=== PATIENT | female | born 1975 | race Caucasian/White ===

== ENCOUNTER 2019-05-07 13:46 | Emergency (ER) | payer OTHER ==
[~2019-05-07] VITALS: Ht 172.7 cm; Wt 106.6 kg
[~2019-05-07 13:46] MED LIST: ALEVE220 MG PO; ATIVAN1 MG PO; BACTRIM DS TAB1 EACH PO; BUSPIRONE HCL7.5 MG PO; CELEXA20 MG PO; DOXYCYCLINE HY100 MG PO; GUAIFENESIN-CO118 ML PO; NAPROXEN500 MG PO; PREDNISONE20 MG PO; PRENATAL-FOLIC1 EACH PO; PROVENTIL HFA6.7 GM INH; ROBAXIN500 MG PO; UNITHROID25 MCG PO; ZESTRIL20 MG PO
[2019-05-07] MEDS ORDERED: ROBITUSSIN COU237 M3 PO (15:45)
[2019-05-07] MEDS ORDERED: VENTOLIN HFA18 GM INH (15:45)
== END 2019-05-07 16:05 | disposition home or self-care (01) ==
LOC: ED 13:46
DX: J06.9 Acute upper respiratory infection, unspecified (principal); R06.2 Wheezing; I10 Essential (primary) hypertension; Z90.49 Acquired absence of other specified parts of digestive tract; Z90.89 Acquired absence of other organs; Z88.0 Allergy status to penicillin
CPT/HCPCS: 94640; 99283

== ENCOUNTER 2022-05-20 22:44 | Observation (INO) | payer BC, OTHER ==
[~2022-05-20] VITALS: Ht 172.7 cm; Wt 116.9 kg
[~2022-05-20 22:44] MED LIST changes: +ROBITUSSIN COU237 M3 PO; +VENTOLIN HFA18 GM INH
[2022-05-20] MEDS ORDERED: VENTOLIN HFA18 GM INH (23:03)
[2022-05-20] MEDS ORDERED: ALLOPURINOL300 MG PO (23:04)
[2022-05-20] MEDS ORDERED: OMEPRAZOLE40 MG PO (23:04)
[2022-05-20] MEDS ORDERED: TRAZODONE HCL100 MG PO (23:04)
--- NOTE | 2022-05-21 05:16 | NUR ---
0500 - admitted to room 112 from ed via stretcher, ambulated to bed, tolerating well. coop with admit assessment, oriented to room
--- NOTE | 2022-05-21 05:34 | NUR ---
Pt c/o feeling very nauseated, dry heaving, medicatd with Zofran IV 4mg , room darkened, NPO
--- NOTE | 2022-05-21 06:20 | NUR ---
Pt admited at 0500 from ED, c/o abd pain, alert and oriented. cooperative, IVF infusing at this time, NPO, oral swabs at bedside. turns and repositions self in bed, alert and oriented. c/o feelling nauseated and dry heaving medicated with Zofran 4mg IV. was very coop wt assessments . in room
--- NOTE | 2022-05-21 06:35 | NUR ---
Up to br, voided, back to bed, tolerated well. c/o h/a, ice pack given, IVF infusing. no further c/o n/v
--- NOTE | 2022-05-21 07:29 | NUR ---
PT APEPARS TO BE SLEEPING SOUNDLY AT TIME OF SHIFT EXCHANGE, LEFT UNDISTURBED. PRESENT ON THE COUCH. CALL LIGHT AND NEEDED ITEMS AT BEDSIDE
[2022-05-21] MEDS ORDERED: LEVOTHYROXINE200 MCG PO (07:34)
--- NOTE | 2022-05-21 08:16 | NUR ---
CONFIRMED WITH C.P. IN PHARMACY 0600 ANCEF DOSE SHOULD BE HELD. LAST DOSE WAS AT 0400 PER CYNTHIA RN.
--- NOTE | 2022-05-21 09:55 | NUR ---
Fadia is awake, alert and oriented to person, place and time when I am with her today. She has spoken with Dr. Suh and is aware that she will be going to surgery around 1500 today. Fadia denies any questions or concerns, but states that "I am just nervous which is probably normal before surgery." Pt expresses no concerns with her self care upon discharge, she states she has older children "who are wonderful" and a " who is wonderful" that can help her with her self care needs and any needs at home including shopping, laundry, household duties, etc.
--- NOTE | 2022-05-21 09:58 | NUR ---
In my rounding today Fadia shares that her care has been "amazing" stating Jasbir in the ER was great, and that her care with Linda and Jin has also been very good. Fadia verbalizes her understanding of her plan for surgery today with Dr. Suh, and she reports that her pain has been well managed. She denies questions or concerns at this time.
--- NOTE | 2022-05-21 10:01 | NUR ---
DR SHARP IN TO SEE PT SURGERY DISCUSSED. JENNIFER ED BOOK PROVIDED, PT DENIES QUESTIONS. RESTING NOW TALKING ON THE PHONE DENIES PAIN OR NEEDS OF. CALL LIGHT AND ORAL CARE ITEMS AT BEDSIDE
--- NOTE | 2022-05-21 11:24 | NUR ---
PT TO THE SHOWER PERSONAL CARE ITEMS PROVIDED. BEDLINENS CHANGED PRE-OP TEACHING COMPLETE, PT DENIES QUESTIONS. CONTINUES NPO
--- NOTE | 2022-05-21 15:25 | NUR ---
PT RESTING IN BED DENIES PAIN, NAUSEA, OR OTHER DISCOMFORTS. STATES SHE IS ANXIOUS TO GET THIS OVER WITH, DENIES QUESTIONS. SURGICAL WIPE DOWN COMPLETED. PRESENT IN THE ROOM
--- NOTE | 2022-05-21 18:43 | NUR ---
05/21/22 184 Sosa Louis 1806 PATIENT INTO PACU. ORAL AIRWAY IN PLACE, PATIENT ON 6L MASK. PATIENT APPEARS TO BE DROWSY, RESTING WITH EYES CLOSED. LAP SITES TO ABDOMEN C/D/I WITH STERI STRIPS. MICHEAL AT BEDSIDE REPORTED PATIENT BRONCHOSPASM DURING SURGERY, NEED TO ENCOURAGE TO COUGH AND DEEP BREATH UPON WAKEFULLNESS. 181 PATIENT OPEN EYES TO PHYISCAL STIMULI. PATIENT ABLE TO OPEN MOUTH AND MICHEAL AIRPORT OPERATIONS COORDINATOR REMOVED ORAL AIRWAY. PATIENT THEN COUGHED AND WAS ABLE TO DEEP BREATH. OXYGEN SATURATION 98% WITH 6L MASK. 1820 PATIENT COMPLAINTS OF PAIN 8/10 ON PAIN SCALE. PATIENT STATES " MY TUMMY HURTS SO BAD" ADMINISTERED PAIN MEDICATION PER JAN. THEN PATIENT HAD COMPLAINTS OF NAUSEA ADMINISTERED ANTIMETIC PER JAN. 183 PATIENT APPEARS DROWSY, ENCOURAGED TO COUGH AND DEEP BREATH. 2L 02 NC. 02 SATURATION 98%.
--- NOTE | 2022-05-21 19:00 | NUR ---
PT ARRIVES TO FLOOR VIA STRETCHER. REPORT RECEIVED FROM ACCESS REGISTRAR, TRAY. PT ABLE TO SCOOT HERSELF OVER TO BED. REPORTS NAUSEA AFTER MOVING. SUBSIDES ONCE STILL. PT DENIES PAIN OR SOB AT THIS TIME. VS OBTAINED WNL. ASSESSMENT COMPLETE. BT'S HYPOACTIVE. LAP SITES X4 WITH MINIMAL RED DRAINAGE PRESENT. IV FLUSHED WITH 10ML NS. WNL, PATENT. IVF INFUSING ORDERED. PT'S PRESENT AT BEDSIDE. POC FOR POST OP DISCUSSED. UNDERSTANDING STATED BY . PT REMAINS DROWSY. FURTHER NEEDS DENIED, CALL LIGHT IN REACH.
--- NOTE | 2022-05-21 20:43 | NUR ---
post op vitals obtained. wnl. pt reports pain, 06/13 to abd. prn administered, see emar. pt falls to sleep quickly while insurance underwriter sales at bedside, wakes easily to voice. pt tolerating small sips of water. encouraged to go slow. pt states understanding. pt's remains at bedside. further needs denied at this time. call light in reach.
--- NOTE | 2022-05-21 22:58 | NUR ---
POST OP VS OBTAINED. PT UP TO BATHROOM AND BACK TO BED WITH SBA, TOLERATES WELL. PT REPORTS INCREASED PAIN, 8/10 TO ABD. PRN ADMINISTERED, SEE EMAR. PT REQUESTS JELLO AND FRESH ICE PACK, PROVIDED. PT REPORTS ROOM STUFFY. FAN PROVIDED. PT DENIES FURTHER NEEDS, TALKING ON CELL PHONE WHEN BURLAP BAG SEWER EXITS ROOMM. TJ LIGHT IN REACH. ASLEEP ON COUCH.
--- NOTE | 2022-05-22 00:25 | NUR ---
ANTHROPOMETRIST TO ROOM FOR IV PUMP ALARMING. PT RESTING IN BED. STATES THAT PAIN IS WELL CONTROLLED AT THIS TIME. REQUESTS ADDITIONAL SNACKS, PROVIDED. PT DENIES FURTHER NEEDS. CALL LIGHT IN REACH.
--- NOTE | 2022-05-22 02:41 | NUR ---
PT ASSESSMENT COMPLETE. PT UP TO BATHROOM AND BACK TO BED WITH SBA, TOLERATED WELL. PT REPORTS PAIN INCREASED TO RUQ. ENCOURAGED PT TO AMBULATE IN MAZA, PT AGREES. LAP IN MAZA X 1, PT TOLERATED WELL. RATES PAIN TO ABD 6/10. PRN ADMINISTERED, SEE EMAR. SNACK PROVIDED WITH PO PAIN MEDICATIN. PT REPORTS EPISODE OF NAUSEA EARILER, PASSED QUICKLY PER PT. BT'S HYPOACTIVE, ABD FIRM, PT REPORTS SLIGHT TENDERNESS. LAP SITES X [address]. SMALL AMOUNT OF DRAINAGE PRESENT UNCHANGED FROM PREVIOUS ASSESSMENT. IVF INFUSING ORDERED. PT DENIES FURTHER NEEDS AT THIS TIME. CALL LIGHT IN REACH.
--- NOTE | 2022-05-22 06:24 | NUR ---
COMB WINDER TO ROOM FOR IV PUMP ALARMING. SCHEDULED MEDICATION ADMINISTERED. PT REPORTS SLIGHT NAUSEA AND PAIN TO ABD, SPECIFICALLY TO RUQ. RATES 4/10. PRNS ADMINISTERED SEE EMAR. PT UP TO BATHROOM AND BACK TO BED WITH SBA, TOLERATED WELL. PT REPORTS HAVING PASSED LARGE AMOUNTS OF FLATUS OVERNIGHT. VS OBATINED. WNL. PT STATES THAT NASUEA IS SLIGHTLY IMPROVED. DENIES FURTHER NEEDS AT THIS TIME. CALL LIGHT IN REACH. SLEEPING ON COUCH.
--- NOTE | 2022-05-22 07:32 | NUR ---
PT RESTING IN BED AWAKE AND INTERACTIVE AT TIME OF SHIFT REPORT. DENIES PAIN STATES SHE IS "JUST SORE" REMAINS AT BEDSIDE. FRESH H20 AND CALL LIGHT IN REACH PT DENIES OTHER NEEDS AT THIS TIME. AGREES TO AMBULATE SEVERAL TIMES THIS SHIFT
--- NOTE | 2022-05-22 08:28 | NUR ---
PT TREATED FOR NAUSEA AROUND 0600 CONTINUES TO FEEL A LITTLE NAUSEATED NO EMESIS. CRACKERS APPEAR TO BE HELPING. PT HAS HAD A FEW BITES OF YOGURT AND HAS SCRAMBLED EGGS AND TOAST AT BEDSIDE. SHE HAS BEEN UP AND AMBULATED THE HALLS WELL TOLERATED. DENIES NEED OF PAIN MEDS. RESTING NOW VISITING WITH MOM
--- NOTE | 2022-05-22 09:01 | NUR ---
THIS RN IN TO F/U WITH PATIENT TO SEE IF SHE HAD ANY NEW QUESTIONS FOR NEEDS UPON DC. PATIENT SAY SHE HAS EVERYTHING THAT SHE WILL NEED. THIS RN DID INFORM PATIENT AND HER SPOUSE THAT SHE IS NOW COVERED BY HER HUSB[facility]S [facility] INSURANCE OF 05/04/22. PATIENT AND SPOUSE THANKED ME FOR THIS INFORMATION AND HAD NO OTHER CONCERNS AT THIS TIME.
--- NOTE | 2022-05-22 09:47 | NUR ---
PT NO LONGER NAUSEATED REQUESTS TYLENOL FOR SORENESS.
--- NOTE | 2022-05-22 11:23 | NUR ---
pt has ambulated the juan several times this shift well tolerated. resting in bed eyes closed, is present in the room.
--- NOTE | 2022-05-22 12:15 | NUR ---
DR SHARP IN TO SEE PT, DC INSTRUCTIONS DISCUSSED ALL QUESTIONS ANSWERED. PT VERBALIZES UNDERSTANDING AND DENIES FURTHER QUESTIONS.
[2022-05-22] MEDS ORDERED: HYDROCODON-ACE1 EA11 PO (12:22)
[2022-05-22] MEDS ORDERED: IBUPROFEN600 MG PO (12:22)
[2022-05-22] MEDS ORDERED: ACETAMINOPHEN500 MG PO (12:23)
--- NOTE | 2022-05-22 12:56 | NUR ---
PT LEAVES WITH VIA W/C AFTER DC INSTRUCTIONS GIVEN TO BOTH. UNDERSTANDING VERBALIZED QUESTIONS DENIED. SCRIPT FOR PAIN MED IN HAND F/U APPT MADE
--- NOTE | 2022-05-22 21:47 | OR ---
[facility] [address] [place], [place] [address] Signed DATE OF OPERATION: 05/21/2022 SURGEON: Nilda Sharp MD PREOPERATIVE DIAGNOSES: 1. Acute calculous cholecystitis. 2. Morbid obesity. 3. History of splenectomy (upper midline incision). POSTOPERATIVE DIAGNOSES: 1. Acute calculous cholecystitis. 2. Morbid obesity. 3. History of splenectomy (upper midline incision). PROCEDURES: Laparoscopic cholecystectomy with intraoperative cholangiogram and surgeon-directed fluoroscopy. ANESTHESIA: General endotracheal; Fabrizio Slaughter, ORCHID HAND and local 10 mL of 0.25% Marcaine without epinephrine. INDICATION: This morbidly obese 46-year-old white woman presented to the emergency room in the director of training hours and evaluated by Dr. Castillo with findings highly suggestive of acute cholecystitis. She had been having several months of epigastric and right subcostal pain following meals. Evaluation in the emergency room showed her to have an elevated white count and a gallbladder ultrasound was performed showing a single large gallstone within the gallbladder as well as somewhat distended gallbladder and an enlarged liver related to fatty infiltration. A CT scan had been performed as well. This additionally showed a right adrenal nodule 2.5 cm in size as well as evidence of prior splenectomy previously undertaken in her youth. She is additionally noted to have a right hydrosalpinx, which she was aware and a relatively small ovarian cyst. She has been fluid resuscitated, given intravenous antibiotics, and now to undergo cholecystectomy preferably by laparoscopic approach. The risks of bleeding, infection, bile duct injury, need for open procedure, and need for common duct exploration were reviewed in detail with her and her , they understand and wished to proceed. FINDINGS: Electronically Signed By: NILDA SHARP MD 05/22/22 2147 PATIENT NAME: ZACH FERNANDO OPERATIVE REPORT DATE OF : 79 REPORT #: [id number] PHYSICIAN: NILDA SHARP MD PCP: YAMILETH GAMBLE MD REPORT IS CONFIDENTIAL AND NOT TO BE RELEASED WITHOUT AUTHORIZATION [facility] [address] [place], [place] [address] Signed Midline laparotomy incision from the past was not disqualifying for a laparoscopic approach. The gallbladder itself was tensely distended and inflamed, and did require decompression. The liver did have fatty infiltration. Cholecystectomy was performed without complication. A small cystic duct was noted. Cholangiogram was normal. DESCRIPTION OF PROCEDURE: The patient was brought to the operating room and given a general endotracheal anesthetic. Induction of anesthesia did have some level of reactive airways, for which endotracheal tube administration of bronchodilator was effective in improving oxygenation and diminishing wheezing. After safe induction of anesthesia, the abdomen was clipped and prepared with a chlorhexidine solution and draped sterilely. An infraumbilical incision was made and using an open Jonny cannula technique, the abdomen entered and pneumoperitoneum achieved to a level of 14 mmHg of carbon dioxide gas. Intra-abdominal inspection showed no sign of ascites or carcinomatosis. There were adhesions of omentum to the midline from prior laparotomy incision. Three additional trocars were placed in the usual configuration in the subxiphoid, right midclavicular, and right anterior axillary line. This allowed for elevation of the gallbladder. The gallbladder was tensely distended and therefore decompression was undertaken with a needle trocar device. The puncture site was grasped and secured with an Endoloop tie. The decompressed gallbladder was far easier to work with, the gallbladder was elevated cephalad. The infundibulum was retracted laterally and using blunt electrocautery dissection, the triangle of Calot was dissected free ultimately identifying well the cystic duct. The cystic duct was surprisingly small, but still large enough to accommodate a cholangiogram. Two clips were applied across a cystic arterial branch and a clip applied across gallbladder cystic duct junction. A transverse choledochotomy was made in the cystic duct and Egress of clear green bile was noted. Using the Yap-type cholangiocatheter, intraoperative cholangiography was undertaken showing free flow of contrast in the biliary tree with prompt emptying into the duodenum. There was no sign of filling defect or other abnormality. The catheter was removed and the cystic duct was triply clipped and divided, and the gallbladder dissected free in a retrograde fashion using electrocautery. The gallbladder was extracted with an endobag through the infraumbilical port site, opened on the back table and found to have a single large gallstone, chronic and subacute inflammation of mucosa. Reinspection of subhepatic space had shown an area of persistent oozing in the liver bed. This was secured with electrocautery, irrigated and ultimately Tisseel fibrin glue applied to the liver bed with good hemostatic effect. The blood loss to the course of this dissection was about 75 mL in total. Irrigation was undertaken more fully. Excess irrigation fluid was suctioned free. The Electronically Signed By: NILDA SHARP MD 05/22/22 2147 PATIENT NAME: ZACH FERNANDO OPERATIVE REPORT DATE OF : 79 REPORT #: [id number] PHYSICIAN: NILDA SHARP MD PCP: YAMILETH GAMBLE MD REPORT IS CONFIDENTIAL AND NOT TO BE RELEASED WITHOUT AUTHORIZATION [address] [address] Signed liver once again examined and found to be hemostatic. The trocars removed under direct visualization showing no sign of bleeding. The infraumbilical fascial incision was reapproximated with interrupted 0 Vicryl suture as well as a running 0 PDS suture. A 10 mL of 0.25% Marcaine was injected locally. The skin was then closed with interrupted 3-0 Vicryl and Steri-Strips were applied. The patient tolerated the procedure well, was extubated without incident, and taken to the recovery room in good condition. Blood loss was about 75 mL in aggregate. MD ROSA M Hawley/MODL /[id number] cc: MD Angelica Everett MD Copies: ANGELICA CASTILLO MD ~ Electronically Signed By: NILDA SHARP MD 05/22/22 2147 PATIENT NAME: ZACH FERNANDO OPERATIVE REPORT DATE OF : 79 REPORT #: [id number] PHYSICIAN: NILDA SHARP MD PCP: YAMILETH GAMBLE MD REPORT IS CONFIDENTIAL AND NOT TO BE RELEASED WITHOUT AUTHORIZATION
--- NOTE | 2022-05-22 21:52 | HP ---
[facility] [address] [place], [place] [address] Signed ADMISSION DATE: 05/21/2022 REASON FOR ADMISSION: Acute calculous cholecystitis. HISTORY OF PRESENT ILLNESS: This obese 46-year-old white woman is accompanied by her . She presented to the emergency room and was evaluated by Dr. Castillo late last night with findings of right upper abdominal and epigastric pain. She has been having similar such symptoms for several months. In recent weeks, things have worsened. The pain appears to be unrelated to food or various activities. She has occasional nausea and vomiting. Her evaluation has included an ultrasound ordered by a provider in [place], [place] several months ago, but she is uncertain of those findings. Her evaluation in the emergency room included a CT scan of the abdomen, which showed right adnexal tubular cystic structure suggestive of hydrosalpinx as well as a right ovarian cyst 3.5 cm in size. Additionally, she had hepatomegaly and hepatic steatosis but gallstones were also noted. There were no secondary signs of acute cholecystitis or intrahepatic ductal dilatation. She had a 2.7 cm right adrenal nodule noted as well. She also had sigmoid diverticulosis. An ultrasound was performed (pelvic type ultrasound) showing a right ovarian simple cyst measuring 3.7 cm and a right hydrosalpinx. An endometrial polyp was additionally noted. An ultrasound was additionally performed of the gallbladder which showed gallstones and a positive Araiza sign. There is borderline dilatation of the common bile duct (greater than 6 mm). 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 LABORATORY STUDIES: Showed an elevated white count of 21.7, hematocrit 43, platelets 331,000. Her Chem profile was normal including normal liver enzymes, though her magnesium was slightly low at 1.4. Urinalysis was normal and serology was negative. She has been admitted and given intravenous antibiotic Ancef. Currently, she is feeling much better. Indeed, she feels "hungry." She does have some residual right upper abdominal pain. PAST MEDICAL HISTORY: Does include childbirth x5. Her youngest child is 9 years old. 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 REVIEW OF SYSTEMS: She denies any shortness of breath or chest pain. She is having no dysphagia, Electronically Signed By: NILDA SHARP MD 05/22/22 2152 PATIENT NAME: ZACH FERNANDO HISTORY AND PHYSICAL DATE OF : 79 REPORT #: [id number] PHYSICIAN: NILDA SHARP MD PCP: YAMILETH GAMBLE MD REPORT IS CONFIDENTIAL AND NOT TO BE RELEASED WITHOUT AUTHORIZATION [facility] [address] [place], [place] [address] Signed hematemesis, blood per rectum or hematuria. PHYSICAL EXAMINATION: GENERAL: A pleasant white woman, who is accompanied by her . Her carries a different last name. VITAL SIGNS: Temperature is 98.1, pulse is 92, blood pressure 121/77, O2 saturation 98% on room air. NECK: Shows no thyromegaly or cervical adenopathy. CHEST: Shows normal respiratory excursion. HEART: Regular. ABDOMEN: Obese, but soft. There is tenderness in the right subcostal area. There is no palpable mass. She has no ascites. An upper midline incision is well healed. EXTREMITIES: Show no clubbing, cyanosis, or edema. ASSESSMENT: She has acute calculous cholecystitis. We discussed the pathophysiology of this problem and recommendation of treatment to include cholecystectomy preferred by laparoscopic approach. The risk of bleeding, infection, bile duct injury, need for open procedure, and so forth were reviewed in detail. As regards to her hydrosalpinx, it appears to be asymptomatic at this time. Further consideration for its management in the future might be made. As regards to her right adrenal nodule, additional evaluation might be undertaken, but at this time would certainly not recommend concurrent adrenalectomy. She will be admitted and prepared for cholecystectomy. MD ROSA M Hawley/MODL /[id number] cc: Angelica Castillo MD Electronically Signed By: NILDA SHARP MD 05/22/222151 PATIENT NAME: ZACH FERNANDO HISTORY AND PHYSICAL DATE OF : 79 REPORT #: [id number] PHYSICIAN: NILDA SHARP MD PCP: YAMILETH GAMBLE MD REPORT IS CONFIDENTIAL AND NOT TO BE RELEASED WITHOUT AUTHORIZATION [facility] [address] [place] [address] Signed Copies: ANGELICA CASTILLO MD ~ Electronically Signed By: NILDA SHARP MD 05/22/22 2152 PATIENT NAME: ZACH FERNANDO HISTORY AND PHYSICAL DATE OF : 79 REPORT #: [id number] PHYSICIAN: NILDA SHARP MD PCP: YAMILETH GAMBLE MD REPORT IS CONFIDENTIAL AND NOT TO BE RELEASED WITHOUT AUTHORIZATION
--- NOTE | 2022-05-24 14:47 | PATH ---
[facility] [address] [place] [facility] [place], [place] [address] Signed SPECIMEN(S): A GALLBLADDER STONE SPECIMEN SOURCE: A. GALLBLADDER STONE CLINICAL HISTORY: Acalculous cholecystitis. FINAL PATHOLOGIC DIAGNOSIS: Gallbladder, cholecystectomy: - Chronic cholecystitis with cholesterolosis. - Cholelithiasis. NAL:cml:C2NR MICROSCOPIC EXAMINATION: Histologic sections of all submitted blocks are examined by light microscopy. These findings, together with the gross examination, support the pathologic diagnosis. GROSS DESCRIPTION: The specimen, labeled "HT, A," and designated on the requisition "gallbladder and stone," is received in formalin and consists of Specimen: Previously opened gallbladder. Dimensions: 6.4 x 5.4 x 0.8 cm. Serosa: Green-willard and smooth. Cystic Duct: Unobstructed, margin inked black and shaved. Calculi: One green, roughened calculus (1.8 cm in greatest dimension). Mucosa: Green and velvety. Wall thickness: 0.4 cm. Lymph node: No pericystic lymph nodes are grossly identified. Additional: None. Network And Threat Support Specialist sections are submitted in cassette (A1). AC (under the direct supervision of a pathologist) The Gross Description was prepared using a voice recognition system. The report was reviewed for accuracy; however, sound-alike word errors, addition and/or deletions may occur. If there is any question about this report, please contact Client Services. PERFORMING LABORATORY: The technical component was performed by [facility] [employer], [address] [place] [id number] (CLIA# [id number]). Professional interpretation was PATIENT NAME: ZACH FERNANDO PATHOLOGY DATE OF : 79 REPORT #: [id number] PHYSICIAN: [facility] PCP: YAMILETH GAMBLE MD REPORT IS CONFIDENTIAL AND NOT TO BE RELEASED WITHOUT AUTHORIZATION [facility] [address] [place], [place] [address] Signed performed by [facility], [address] [address] (CLIA# [id number]). Diagnostician: Janna Damon MD Pathologist Electronically Signed 05/24/2022 Copies: ~ PATIENT NAME: ZACH FERNANDO PATHOLOGY DATE OF : 79 REPORT #: [id number] PHYSICIAN: [facility] PATH[facility] PCP: YAMILETH GAMBLE MD REPORT IS CONFIDENTIAL AND NOT TO BE RELEASED WITHOUT AUTHORIZATION
== END 2022-05-22 12:55 | disposition home or self-care (01) ==
LOC: ED 22:44 → MS 05-21 03:47
PROVIDERS: ADMIT Surgery; ATTEND Surgery
PROC: BF12YZZ Fluoroscopy of Gallbladder using Other Contrast (ICD-10-PCS; 2022-05-21)
PROC: 0FT44ZZ Resection of Gallbladder, Percutaneous Endoscopic Approach (ICD-10-PCS; principal; 2022-05-21 14:45)
DX: K80.12 Calculus of gallbladder with acute and chronic cholecystitis without obstruction (principal); E66.01 Morbid (severe) obesity due to excess calories; Z90.81 Acquired absence of spleen; N70.11 Chronic salpingitis; N83.209 Unspecified ovarian cyst, unspecified side; K76.0 Fatty (change of) liver, not elsewhere classified; Z20.822 Contact with and (suspected) exposure to COVID-19; Z88.0 Allergy status to penicillin; I25.2 Old myocardial infarction; Z68.39 Body mass index [BMI] 39.0-39.9, adult
CPT/HCPCS: 36415; 74177; 74300; 76705; 76830; 76856; 80053; 81001; 83735; 84703; 85025; 87502; 96361; 96372; 96375; 96376; 99285-25; A9270; C9803; G0378; J0131; J0330; J0690; J1100; J1644; J1790; J1885; J2270; J2405; J2704; J3010; J3475; J7030; J7121; Q9967; U0003